=== PATIENT | female | born 1995 | race Caucasian/White ===

== ENCOUNTER → 2020-10-29 08:48 | Outpatient (REF) | payer OTHER, SELFPAY ==
--- NOTE | 2020-10-29 09:12 | ECG_ITS ---
Test Reason : METHADONE CK QT Blood Pressure : / mmHG Vent. Rate : 068 BPM Atrial Rate : 068 BPM P-R Int : 150 ms QRS Dur : 088 ms QT Int : 446 ms P-R-T Axes : 018 055 035 degrees QTc Int : 474 ms Normal sinus rhythm Normal ECG No previous ECGs available Referred By: Emily Webb Electronically Signed By:Karel Bowie
== END ==
LOC: HO.CARD 08:48
PROVIDERS: PCP Internal Medicine; Visit Provider Family Medicine
DX: Z79.899 Other long term (current) drug therapy (principal)
CPT/HCPCS: 93005

== ENCOUNTER → 2021-02-09 08:51 | Outpatient (REF) | payer OTHER, SELFPAY ==
--- NOTE | 2021-02-09 09:02 | ECG_ITS ---
Test Reason : methadone use Blood Pressure : / mmHG Vent. Rate : 066 BPM Atrial Rate : 066 BPM P-R Int : 148 ms QRS Dur : 086 ms QT Int : 434 ms P-R-T Axes : 007 054 034 degrees QTc Int : 454 ms Normal sinus rhythm RSR' or QR pattern in V1 suggests right ventricular conduction delay Otherwise normal ECG When compared with ECG of 29-OCT-2020 09:25, No significant change was found Referred By: Obie Arce Electronically Signed By:MELECIO RAMIREZ MD
== END ==
LOC: HO.CARD 08:51
PROVIDERS: PCP Internal Medicine; Visit Provider Internal Medicine
DX: F10.21 Alcohol dependence, in remission (principal); Z79.899 Other long term (current) drug therapy
CPT/HCPCS: 93005

== ENCOUNTER 2022-06-06 16:09 | Emergency (ER) | payer OTHER, SELFPAY ==
--- NOTE | ~2022-06-06 | CT_ITS ---
EXAMINATION: CT cervical spine wo IV con, CT head/brain wo IV con INDICATION INFORMATION: Fall COMPARISON: None TECHNIQUE: Separate noncontrast CT examinations of the head and cervical spine were performed. Coronal and sagittal images were created for each examination at the technologist workstation. This CT examination was performed using dose optimization techniques as appropriate, variously including the following: *Automated exposure control *Adjustment of mA and/or kV according to patient size (this includes techniques or standardized protocols for targeted exams where dose is matched to indication/reason for exam; i.e. extremities or head) *Use of iterative reconstruction technique DLP: 959 FINDINGS: Head: No acute osseous or soft tissue abnormality. The mastoid air cells and visualized portions of the paranasal sinuses are well aerated. There is no evidence of acute intracranial hemorrhage or territorial infarction. No abnormal mass effect or midline shift is seen. [place] to white matter differentiation is well preserved. No extra-axial fluid collections are identified. No hydrocephalus. No significant volume loss. There is no abnormal attenuation within the brain parenchyma. Cervical spine: There is no evidence of acute cervical spine fracture. Vertebral bodies remain normal in height. Reversal of the usual cervical lordosis, likely related to positioning. Disc space heights are maintained. No pre- or paravertebral soft tissue abnormality is identified. Visualized portions of the lung apices are unremarkable. The thyroid gland is unremarkable. CT/CT cervical spine wo IV con IMPRESSION: 1. No acute intracranial abnormality. 2. No cervical spine fracture or traumatic malalignment.
--- NOTE | ~2022-06-06 | XR_ITS ---
EXAMINATION: XR RIBS, BILATERAL CLINICAL INFORMATION: Fall off of bed COMPARISON: None TECHNIQUE: 3 views of the bilateral ribs were obtained. FINDINGS: Lungs are clear. No consolidation, pneumothorax, or pleural effusion. The cardiomediastinal silhouette and pulmonary vasculature are normal. Osseous structures are unremarkable. No acute displaced rib fractures are identified. XR/XR ribs BI min 4V w CXR1V IMPRESSION: 1. No acute pulmonary process. 2. No acute displaced rib fractures identified.
--- NOTE | ~2022-06-06 | CT_ITS ---
EXAMINATION: CT cervical spine wo IV con, CT head/brain wo IV con INDICATION INFORMATION: Fall COMPARISON: None TECHNIQUE: Separate noncontrast CT examinations of the head and cervical spine were performed. Coronal and sagittal images were created for each examination at the technologist workstation. This CT examination was performed using dose optimization techniques as appropriate, variously including the following: *Automated exposure control *Adjustment of mA and/or kV according to patient size (this includes techniques or standardized protocols for targeted exams where dose is matched to indication/reason for exam; i.e. extremities or head) *Use of iterative reconstruction technique DLP: 959 FINDINGS: Head: No acute osseous or soft tissue abnormality. The mastoid air cells and visualized portions of the paranasal sinuses are well aerated. There is no evidence of acute intracranial hemorrhage or territorial infarction. No abnormal mass effect or midline shift is seen. [place] to white matter differentiation is well preserved. No extra-axial fluid collections are identified. No hydrocephalus. No significant volume loss. There is no abnormal attenuation within the brain parenchyma. Cervical spine: There is no evidence of acute cervical spine fracture. Vertebral bodies remain normal in height. Reversal of the usual cervical lordosis, likely related to positioning. Disc space heights are maintained. No pre- or paravertebral soft tissue abnormality is identified. Visualized portions of the lung apices are unremarkable. The thyroid gland is unremarkable. CT/CT head/brain wo IV con IMPRESSION: 1. No acute intracranial abnormality. 2. No cervical spine fracture or traumatic malalignment.
--- NOTE | ~2022-06-06 | CT_ITS ---
EXAMINATION: CT CHEST WITHOUT CONTRAST CLINICAL INFORMATION: Fall with chest pain COMPARISON: None TECHNIQUE: Multidetector volumetric CT imaging of the chest was done. Axial MIP volume rendering provided. Sagittal and coronal reformatted images were obtained. This CT examination was performed using dose optimization techniques as appropriate, variously including the following: *Automated exposure control *Adjustment of mA and/or kV according to patient size (this includes techniques or standardized protocols for targeted exams where dose is matched to indication/reason for exam; i.e. extremities or head) *Use of iterative reconstruction technique DLP: 178 mGy-cm FINDINGS: PHYSICIAN PRACTICE MANAGER: No abnormality is seen LUNGS: The lungs are clear with no evidence of inflammation or worrisome nodules. A tiny 3 mm subpleural right middle lobe nodule is seen (5:292). MEDIASTINUM: Heart size normal. Soft tissue density in the anterior mediastinum represents residual thymus. CORONARY ARTERY CALCIFICATION: None visualized on this study. PLEURA: There is no pleural effusion. No pleural mass or thickening. AXILLA: No lymphadenopathy. UPPER ABDOMEN: A punctate calcified granuloma is present in the liver. Hepatic attenuation is slightly decreased suggesting hepatic steatosis. OSSEOUS STRUCTURES: Unremarkable. No fractures are seen. CT/CT chest wo IV con IMPRESSION: 1. No evidence of an acute traumatic injury in the chest. 2. Incidental note made of a tiny 3 mm right middle lobe nodule, probable hepatic steatosis and residual thymic tissue. Fleischner guidelines were followed. Guidelines state that they do not apply to patients younger than 35 years of age and the above-mentioned nodule most likely requires no follow-up.
--- NOTE | 2022-06-06 16:49 | ED.FALL ---
HPI - Fall General Chief Complaint: Fall <GRISELDA Hernandez - Last Filed: 06/06/22 16:58> Stated Complaint: Fall/Head inj <GRISELDA Hernandez - Last Filed: 06/06/22 16:58> Time Seen by Provider: 06/06/22 18:48 <GRISELDA Hernandez - Last Filed: 06/06/22 16:58> Source: patient <GRISELDA Pantoja - Last Filed: 06/06/22 21:12> Mode of arrival: ambulatory <GRISELDA Pantoja - Last Filed: 06/06/22 21:12> Limitations: other (Poor historian) <GRISELDA Pantoja - Last Filed: 06/06/22 21:12> History of Present Illness HPI Narrative: This is a 26-year-old female history of substance use disorder, currently on methadone presenting to the emergency department with a chief complaint of ?I whacked my head a few times ?. Patient tells me he last night patient fell at least 2-3 times off of her, she tells me she is not sure why she fell but she tells me she relapsed on heroin, yesterday used 10 bags of IV heroin, she tells me every time she rolled she would roll off her bed and fall, she hit her head and she thinks she lost consciousness however unclear, poor historian. Patient tells me she is having a diffuse headache, at times she has intermittent blurred vision, this happens to her periodically however when she uses drugs. Patient also reports cocaine use. Denies tobacco or alcohol. Patient tells me she also thinks she hit the right side of her ribs, however unsure, she tells me she was having pain yesterday however pain has subsided. Denies chest pain, shortness of breath, dizziness, weakness, nausea, vomiting, abdominal pain, saddle paresthesias, back pain, changes in urination or bowel habits. GCS of 15 and NIH stroke scale 0 upon arrival. <GRISELDA Pantoja - Last Filed: 06/06/22 21:12> Related Data Home Medications: Previous Rx's Medication Instructions Recorded naloxone 4 mg/actuation nasal 4 mg intranasal Q2M PRN opioid 06/06/22 spray (Narcan) overdose #2 ea <GRISELDA Hernandez - Last Filed: 06/06/22 16:58> Allergies/Adverse Reactions: Allergies Allergy/AdvReac Type Severity Reaction Status Date / Time amoxicillin Allergy Swelling Verified 06/06/22 16:49 <GRISELDA Hernandez - Last Filed: 06/06/22 16:58> Review of Systems Review of Systems: Constitutional : No Weight loss, No Fever, No Chills, No Fatigue, No Malaise ENT/Mouth : No sore throat, No Rhinorrhea Eyes: No Eye Pain, No Swelling, No Redness Cardiovascular : No Chest Pain, No SOB, No Dyspnea on Exertion, No Orthopnea, No Edema, No Palpitations Respiratory : No Cough, No Sputum, No Wheezing Gastrointestinal : No Nausea, No Vomiting, No Diarrhea, No Constipation, No abdominal Pain, No Hematochezia, No Melena Genitourinary : No Dysuria, No Urinary Frequency, No Hematuria, Musculoskeletal : No joint pain, No Myalgias, No Joint Swelling, + rib pain Skin : No Skin Lesions, No rash Neuro : No Weakness, No Numbness, No Dizziness, + Headache Psych : No Anxiety/Panic, No Depression All other systems reviewed and are negative <GRISELDA Pantoja - Last Filed: 06/06/22 21:12> Yes all other systems are reviewed and are negative <GRISELDA Pantoja - Last Filed: 06/06/22 21:12> [facility] Past Medical History Attestation statement: The following information was validated with the patient. <GRISELDA Pantoja - Last Filed: 06/06/22 21:12> Source: old records reviewed and nursing notes reviewed <GRISELDA Pantoja - Last Filed: 06/06/22 21:12> Social History Social History: Social History Advance Directives: No Advance Directives Information Provided: Yes <GRISELDA Hernandez - Last Filed: 06/06/22 16:58> Physical Exam Vital Signs: Vital Signs: Last Vital Signs Temp 97.8 F 06/06/22 16:50 Pulse 80 06/06/22 16:50 Resp 18 06/06/22 16:50 BP 110/71 06/06/22 16:50 Pulse Ox 98 06/06/22 16:50 O2 Del Method 06/06/22 16:50 BMI result Body Mass Index 20.9 <GRISELDA Hernandez - Last Filed: 06/06/22 16:58> Vital Signs: Last Vital Signs Temp 97.8 F 06/06/22 16:50 Pulse 80 06/06/22 16:50 Resp 18 06/06/22 16:50 BP 110/71 06/06/22 16:50 Pulse Ox 98 06/06/22 16:50 O2 Del Method 06/06/22 16:50 BMI result Body Mass Index 20.9 vss <GRISELDA Pantoja - Last Filed: 06/06/22 21:12> Appearance: Alert.? Oriented X3.? No acute distress.? Head: Normocephalic, atraumatic, no step-offs or deformities Eyes: Pupils equal, round and reactive to light.? Extraocular movements intact pain-free. ENT: Pharynx normal.? Neck: Normal inspection.? Neck supple.? CVS: Normal heart rate and rhythm.? Pulses normal.? Respiratory: No respiratory distress.? Breath sounds normal.? No signs of flail chest. No pain with palpation of anterior chest wall. Abdomen: Soft and nontender.? Skin: Skin warm and dry.? Normal skin color.? Normal skin turgor.? Extremities: No lower extremity edema.? No calf ttp. 5/5 strength to bilateral upper and lower extremities Neuro: Oriented X 3.? No motor deficit.? No sensory deficit. CN 2-12 intact . Normal [id number], aras-le-[id number], steady tandem gait with normal coordination, normal rapid alternating movements, negative Romberg and pronator drift. <GRISELDA Pantoja - Last Filed: 06/06/22 21:12> Course Course Course Narrative: RME--26yo F w/PMHx substance abuse currently on Methadone c/o ZHAO, neck pain, bilateral rib pain s/p falling off bed multiple times last night s/p using 10 bags of heroin. Patient reports nausea and vomiting Patient denies SI, ETOH or other illicit substances. Not currently interested in detox Head/C-spine CT and bilateral rib x-rays ordered <GRISELDA Hernandez - Last Filed: 06/06/22 16:58> Reevaluation(s) Reevaluation #1: Rib x-ray unremarkable. Patient is refusing IV line and labs. Therefore dry scan will be done although not ideal better than an x-ray to rule out for rib fractures. <GRISELDA Pantoja - Last Filed: 06/06/22 21:12> Time: 20:03 <GRISELDA Pantoja - Last Filed: 06/06/22 21:12> Reevaluation #2: CT of the head with no acute intracranial abnormality. CT of the cervical spine no acute cervical spine fracture, dislocation or traumatic subluxations. CT of chest pending. <GRISELDA Pantoja - Last Filed: 06/06/22 21:12> Time: 21:02 <GRISELDA Pantoja - Last Filed: 06/06/22 21:12> Reevaluation #3: Chest x-ray unremarkable. Educated patient on diagnosis and treatment plan, answered all question, patient verbalizes understanding. At this time patient will be discharged home, advised to return with new or worsening symptoms. Educated on worrisome signs and symptoms and when to return. At this time I feel comfortable discharge home. <GRISELDA Pantoja - Last Filed: 06/06/22 21:12> Time: 21:12 <GRISELDA Pantoja - Last Filed: 06/06/22 21:12> Medical Decision Making Medical Decision Making MDM Narrative: This is a 26-year-old female presenting with multiple falls status post using heroin now complaining of headache and yesterday was experiencing right-sided rib pain, which is now improved. Offered patient detox however refused. Physical exam benign. GCS 15 NIH stroke scale 0. Likely fall secondary to substance abuse. I do not suspect stroke, posterior stroke, intracranial hemorrhage. Unlikely meningitis, encephalitis. I do not suspect rib fractures, flail chest or pneumothorax. Plan at this time imaging. <GRISELDA Pantoja - Last Filed: 06/06/22 21:12> Differential Diagnosis Differential Diagnoses: The differential diagnosis associated with the presentation includes <GRISELDA Pantoja - Last Filed: 06/06/22 21:12> Likely fall secondary to substance abuse. I do not suspect stroke, posterior stroke, intracranial hemorrhage. Unlikely meningitis, encephalitis. I do not suspect rib fractures, flail chest or pneumothorax. <GRISELDA Pantoja - Last Filed: 06/06/22 21:12> Admission/Observation Consideration of admission/observation: Escalation of care including admission/observation considered <GRISELDA Pantoja - Last Filed: 06/06/22 21:12> Not indicated <GRISELDA Pantoja - Last Filed: 06/06/22 21:12> Lab Data MDM Lab Attestation statement: I reviewed the patient's lab results. <GRISELDA Pantoja - Last Filed: 06/06/22 21:12> Core Measures AMI core measures followed: Yes <GRISELDA Pantoja - Last Filed: 06/06/22 21:12> Measure exclusions: not indicated <GRISELDA Pantoja - Last Filed: 06/06/22 21:12> Critical Care Time Critical Care Time Critical Care Time: No <GRISELDA Pantoja - Last Filed: 06/06/22 21:12> Discharge Plan Discharge Clinical Impression: Fall, Concussion with loss of consciousness, Heroin abuse <GRISELDA Hernandez - Last Filed: 06/06/22 16:58> Patient Disposition: Home, Self-Care <GRISELDA Hernandez - Last Filed: 06/06/22 16:58> Instructions: Concussion (ED), Post Concussion Syndrome (ED) <GRISELDA Hernandez - Last Filed: 06/06/22 16:58> Additional Instructions: Take your medications as prescribed. If you were prescribed antibiotics today, it is important that you take your medication to their entirety, do not skip any doses, do not finish them early. Follow-up with your primary care provider this week. Return to the emergency department with new or worsening symptoms. Such as fevers, chills, chest pain, shortness of breath, nausea, vomiting, dizziness, headache, vision changes, lethargy In case of emergency call 911 CT/CT chest wo IV con IMPRESSION: 1.? No evidence of an acute traumatic injury in the chest. 2.? Incidental note made of a tiny 3 mm right middle lobe nodule, probable hepatic steatosis and residual thymic tissue. ? Fleischner guidelines were followed. Guidelines state that they do not apply to patients younger than 35 years of age and the above-mentioned nodule most likely requires no follow-up. CT/CT head/brain & cervical spine wo IV con IMPRESSION: ? 1.? No acute intracranial abnormality. ? 2.? No cervical spine fracture or traumatic malalignment. ? <GRISELDA Hernandez - Last Filed: 06/06/22 16:58> Prescriptions: New naloxone [Narcan] 4 mg/actuation spray,non-aerosol 4 mg intranasal Q2M PRN (Reason: opioid overdose) Qty: 2 0RF Rx Instructions: spray 1 dose into ONE nostril; alternate nostrils w each dose until help arrives <GRISELDA Hernandez - Last Filed: 06/06/22 16:58> Referrals: Physician,Unknown J [Primary Care Provider] - 2 days <GRISELDA Hernandez - Last Filed: 06/06/22 16:58> Stand Alone Forms: Work/School Release <GRISELDA Hernandez - Last Filed: 06/06/22 16:58>
[2022-06-06 16:50] VITALS: BP 110/71; PULSE 80; RESP 18; TEMP 36.6; O2SAT 98; BMI 20.9
--- NOTE | 2022-06-06 19:59 | MHC.EDTECH ---
provider ordered labs for pt. I went to draw pt. pt refused labs due to arms being sore. RN and Provider notified
[2022-06-06] MEDS: Ketorolac Tromethamine 15 MG/ML VIAL 30 MG IM (21:30)
== END 2022-06-06 22:25 | disposition home or self-care (01) ==
PROVIDERS: Emergency Provider Emergency Medicine
DX: S06.0X0A Concussion without loss of consciousness, initial encounter (principal); W06.XXXA Fall from bed, initial encounter; F19.10 Other psychoactive substance abuse, uncomplicated; F11.20 Opioid dependence, uncomplicated; Z91.81 History of falling; Y93.84 Activity, sleeping; Y92.013 Bedroom of single-family (private) house as the place of occurrence of the external cause; Y99.9 Unspecified external cause status
CPT/HCPCS: 70450; 71111; 71250; 72125; 96372; 99283; 99284; J1885

== ENCOUNTER 2022-06-08 06:29 | Emergency (ER) | payer OTHER, SELFPAY ==
[2022-06-08 07:35] VITALS: BP 96/66; PULSE 64; RESP 16; TEMP 36.6; O2SAT 99; BMI 21.6
--- NOTE | 2022-06-08 08:46 | ED.GENADULT ---
HPI - General Adult General Chief complaint: Head Injury <GRISELDA Villagomez - Last Filed: 06/08/22 10:30> Stated complaint: pain from previous fall <GRISELDA Villagomez Last Filed: 06/08/22 10:30> Time Seen by Provider: 06/08/22 08:45 <GRISELDA Villagomez Last Filed: 06/08/22 10:30> Source: patient <GRISELDA Villagomez Last Filed: 06/08/22 10:30> Mode of arrival: ambulatory <GRISELDA Villagomez Last Filed: 06/08/22 10:30> Limitations: no limitations <GRISELDA Villagomez Last Filed: 06/08/22 10:30> History of Present Illness HPI narrative: Patient is a 26 year old assigned female at with no reported medical history presenting to the emergency department today with continued headache and nausea after a fall. Patient states that 2 days ago she was evaluated here for a head injury after she had a fall. Patient states that she is continuing to have a headache and nausea and also needs her work note extended. Patient denies any dizziness, lightheadedness, abdominal pain, vomiting, fever, chills, blurry vision, double vision, loss of vision, chest pain, difficulty breathing, shortness of breath, back pain, night sweats, pain with urination, increased urinary frequency, increased urinary urgency, blood in her urine or stool, syncope or a near syncopal episode, bowel incontinence, bladder incontinence, bowel retention, bladder retention, or any other complaints at this time. <GRISELDA Villagomez - Last Filed: 06/08/22 10:30> Onset (ago): day(s) (2) <GRISELDA Villagomez - Last Filed: 06/08/22 10:30> Location: head <GRISELDA Villagomez Last Filed: 06/08/22 10:30> Severity: mild <GRISELDA Villagomez Last Filed: 06/08/22 10:30> Severity scale (1-10): 2 <GRISELDA Villagomez Last Filed: 06/08/22 10:30> Quality: dull <GRISELDA Villagomez Last Filed: 06/08/22 10:30> Pain Consistency: constant <GRISELDA Villagomez - Last Filed: 06/08/22 10:30> Relieving factors: none <GRISELDA Villagomez - Last Filed: 06/08/22 10:30> Exacerbating factors: none <GRISELDA Villagomez - Last Filed: 06/08/22 10:30> Associated symptoms: nausea/vomiting <GRISELDA Villagomez - Last Filed: 06/08/22 10:30> Treatments prior to arrival: none <GRISELDA Villagomez - Last Filed: 06/08/22 10:30> Related Data Home medications: Previous Rx's Medication Instructions Recorded naloxone 4 mg/actuation nasal 4 mg intranasal Q2M PRN opioid 06/06/22 spray (Narcan) overdose #2 ea ondansetron 4 mg disintegrating 4 mg PO Q8H 3 days #9 tabs 06/08/22 tablet <GRISELDA Villagomez - Last Filed: 06/08/22 10:30> Allergies/adverse reactions: Allergies Allergy/AdvReac Type Severity Reaction Status Date / Time amoxicillin Allergy Swelling Verified 06/06/22 16:49 <GRISELDA Villagomez - Last Filed: 06/08/22 10:30> Review of Systems Constitutional: Constitutional: Reports no additional constitutional complaints, Denies chills, Denies fever(s), Reports headache(s) and Denies night sweats <GRISELDA Villagomez - Last Filed: 06/08/22 10:30> Eyes: Eyes: Reports no additional eye complaints, Denies blurry vision, Denies change in vision, Denies diplopia, Denies eye discharge, Denies loss of vision and Denies eye pain <GRISELDA Villagomez - Last Filed: 06/08/22 10:30> ENT: Denies dizziness and Reports headache(s) <GRISELDA Villagomez - Last Filed: 06/08/22 10:30> Cardiovascular: Cardiovascular: Reports no additional cardiovascular complaints, Denies chest pain, Denies lightheadedness, Denies Loss of Consciousness and Denies dyspnea <GRISELDA Villagomez - Last Filed: 06/08/22 10:30> Respiratory: Respiratory: Reports no additional respiratory complaints and Denies dyspnea <GRISELDA Villagomez - Last Filed: 06/08/22 10:30> Gastrointestinal: Gastrointestinal: Reports no additional gastrointestinal complaints, Denies abdominal pain, Denies melena, Denies hematochezia, Denies change in bowel habits, Denies change in stool character and Reports nausea <GRISELDA Villagomez - Last Filed: 06/08/22 10:30> Genitourinary: Genitourinary: Denies hematuria, Denies urinary frequency, Denies dysuria, Denies urinary incontinence, Denies urinary hesitancy and Denies urinary urgency <GRISELDA Villagomez - Last Filed: 06/08/22 10:30> Musculoskeletal: Musculoskeletal: Reports no additional musculoskeletal complaints, Denies numbness and Denies tingling <GRISELDA Villagomez - Last Filed: 06/08/22 10:30> Neurologic: Denies dizziness, Reports headache(s), Denies loss of vision, Denies numbness and Denies tingling <GRISELDA Villagomez - Last Filed: 06/08/22 10:30> Psychiatric: Psychiatric: Reports no additional psychiatric complaints <GRISELDA Villagomez - Last Filed: 06/08/22 10:30> Endocrine: Endocrine: Reports no additional endocrine complaints <GRISELDA Villagomez - Last Filed: 06/08/22 10:30> Hematologic/Lymphatic: Hematologic/Lymphatic: Reports no additional hematologic/lymphatic complaints <GRISELDA Villagomez - Last Filed: 06/08/22 10:30> Allergic/Immunologic: Allergic/Immunologic: Reports no additional allergic/immunologic complaints <GRISELDA Villagomez - Last Filed: 06/08/22 10:30> [facility] Past Medical History Attestation statement: The following information was validated with the patient. <GRISELDA Villagomez - Last Filed: 06/08/22 10:30> Source: old records reviewed and nursing notes reviewed <GRISELDA Villagomez - Last Filed: 06/08/22 10:30> Social History Social History: Social History Advance Directives: No Advance Directives Information Provided: Yes <GRISELDA Villagomez - Last Filed: 06/08/22 10:30> Physical Exam ED Vital Signs: Vital Signs - 24 hr 06/08/22 07:35 Temperature 97.8 F Pulse Rate 64 Respiratory Rate 16 Blood Pressure 96/66 Pulse Oximetry 99 Oxygen Delivery Method Room Air BMI result Body Mass Index 21.6 <GRISELDA Villagomez - Last Filed: 06/08/22 10:30> Vital Signs - 24 hr 06/08/22 07:35 Temperature 97.8 F Pulse Rate 64 Respiratory Rate 16 Blood Pressure 96/66 Pulse Oximetry 99 Oxygen Delivery Method Room Air BMI result Body Mass Index 21.6 <Saud Clifford MD - Last Filed: 06/08/22 10:43> Const General: cooperative, no acute distress, alert and awake <GRISELDA Villagomez - Last Filed: 06/08/22 10:30> Nutritional Appearance: well nourished <GRISELDA Villagomez - Last Filed: 06/08/22 10:30> Orientation/consciousness: patient oriented x3 <GRISELDA Villagomez - Last Filed: 06/08/22 10:30> Limitations: no limitations <GRISELDA Villagomez - Last Filed: 06/08/22 10:30> HENMT Head: Yes normal to inspection and Yes atraumatic <GRISELDA Villagomez - Last Filed: 06/08/22 10:30> Ears: hearing grossly normal bilaterally and external ears normal <GRISELDA Villagomez - Last Filed: 06/08/22 10:30> General nose exam: Normal external nose present, no nasal discharge noted and no epistaxis <GRISELDA Villagomez - Last Filed: 06/08/22 10:30> Face and sinus: Yes normal facial exam, No abrasion and No laceration <GRISELDA Villagomez - Last Filed: 06/08/22 10:30> Mouth: Normal oral and palatal mucosa present, no drooling and no muffled voice <GRISELDA Villagomez - Last Filed: 06/08/22 10:30> Eyes General: appearance normal, both eyes and all related structures <GRISELDA Villagomez - Last Filed: 06/08/22 10:30> Periorbital: periorbital findings normal <GRISELDA Villagomez - Last Filed: 06/08/22 10:30> Eyelids: Yes eyelids normal <GRISELDA Villagomez - Last Filed: 06/08/22 10:30> Conjunctivae: conjunctivae normal <La York PA - Last Filed: 06/08/22 10:30> Pupils: Equal, round and reactive pupils present <La York PA - Last Filed: 06/08/22 10:30> EOM: EOMs intact bilaterally <La York LA - Last Filed: 06/08/22 10:30> Neck Neck: Yes normal visual inspection, Yes full ROM and Yes no lymphadenopathy <La York PA - Last Filed: 06/08/22 10:30> Chest Chest palpation & inspection: normal inspection of the chest <La York LA - Last Filed: 06/08/22 10:30> Resp Effort & Inspection: normal respiratory effort and able to speak in complete sentences <La York LA - Last Filed: 06/08/22 10:30> Auscultation: clear to auscultation bilaterally <La York LA - Last Filed: 06/08/22 10:30> Cardio Rate: regular rate <La York PA - Last Filed: 06/08/22 10:30> Rhythm: regular rhythm <La York PA - Last Filed: 06/08/22 10:30> GI Inspection: Yes normal to inspection <La York LA - Last Filed: 06/08/22 10:30> Palpation (GI): Soft to palpation, not firm, nontender and no guarding <La York PA - Last Filed: 06/08/22 10:30> Neuro General: patient oriented x3 and moves all extremities <La York PA - Last Filed: 06/08/22 10:30> Cranial nerves: Yes Equal, round and reactive pupils present <La York PA - Last Filed: 06/08/22 10:30> Cognition (Neuro): normal cognition <La York PA - Last Filed: 06/08/22 10:30> Motor exam (neuro): 5/5 motor strength present throughout <La York PA - Last Filed: 06/08/22 10:30> Sensory Exam: Normal double simultaneous stimulation for sensation <La York PA - Last Filed: 06/08/22 10:30> Coordination: [id number] test normal <GRISELDA Villagomez - Last Filed: 06/08/22 10:30> Extrem General: Yes normal to inspection, Yes full ROM and Yes capillary refill normal <GRISELDA Villagomez - Last Filed: 06/08/22 10:30> Psych Appearance: grossly normal <GRISELDA Villagomez - Last Filed: 06/08/22 10:30> Mental Status: mental status grossly normal <GRISELDA Villagomez - Last Filed: 06/08/22 10:30> Affect: normal affect <GRISELDA Villagomez - Last Filed: 06/08/22 10:30> Attitude: cooperative <GRISELDA Villagomez - Last Filed: 06/08/22 10:30> Thought process: Normal thought process present <GRISELDA Villagomez - Last Filed: 06/08/22 10:30> Thought content: Normal thought content present <GRISELDA Villagomez - Last Filed: 06/08/22 10:30> Insight: Good insight present (Psych) <GRISELDA Villagomez - Last Filed: 06/08/22 10:30> Medications Administered Discontinued Medications Generic Name Dose Route Start Last Admin Trade Name Freq PRN Reason Stop Dose Admin Ondansetron HCl 4 mg 06/08/22 08:58 06/08/22 09:08 Ondansetron Odt 4 Mg Tab.Rapdis TRANSLINGU 06/08/22 08:59 4 mg ONCE ONE Administration <GRISELDA Villagomez - Last Filed: 06/08/22 10:30> Medications Administered Discontinued Medications Generic Name Dose Route Start Last Admin Trade Name Freq PRN Reason Stop Dose Admin Ondansetron HCl 4 mg 06/08/22 08:58 06/08/22 09:08 Ondansetron Odt 4 Mg Tab.Rapdis TRANSLINGU 06/08/22 08:59 4 mg ONCE ONE Administration <Saud Clifford MD - Last Filed: 06/08/22 10:43> Medical Decision Making Medical Decision Making MDM Narrative: Patient is a 26 year old assigned female at with no reported medical history presenting to the emergency department today with continued headache and nausea after a trip and fall head injury. Patient's physical exam was unremarkable. I explained my physical exam findings to the patient. I answered all questions asked by the patient. Patient received Zofran which she stated helped her symptoms significantly. I stressed the importance of the patient taking her medication as prescribed. I stressed the importance of the patient following up with her primary care provider. I stressed the importance of the patient returning to the emergency department immediately if her symptoms were to worsen or if she were to develop any dizziness, shortness of breath, difficulty breathing, chest pain, blurry vision, loss of vision, nausea, vomiting, abdominal pain, fever, chills, back pain, or any other complaints. Patient verbalized agreement and understanding with this treatment plan and discharge. <GRISELDA Villagomez - Last Filed: 06/08/22 10:30> Differential Diagnosis Differential Diagnoses: The differential diagnosis associated with the presentation includes <GRISELDA Villagomez - Last Filed: 06/08/22 10:30> concussion <GRISELDA Villagomez - Last Filed: 06/08/22 10:30> Attestation Attending Attestation: I reviewed NETWORK SYSTEMS ENGINEER/PA/Resident note, assessment and plan. I agree with the documentation, assessment and plan unless otherwise stated. <Saud Clifford MD - Last Filed: 06/08/22 10:43> Discharge Plan Discharge Clinical Impression: Closed head injury <GRISELDA Villagomez - Last Filed: 06/08/22 10:30> Patient Disposition: Home, Self-Care <GRISELDA Villagomez - Last Filed: 06/08/22 10:30> Instructions: Head Injury (ED) <GRISELDA Villagomez - Last Filed: 06/08/22 10:30> Additional Instructions: Follow up with your primary care provider. Return to the emergency department immediately if your symptoms worsen or if you develop any dizziness, shortness of breath, difficulty breathing, chest pain, blurry vision, loss of vision, nausea, vomiting, abdominal pain, fever, chills, back pain, or any other complaints. <GRISELDA Villagomez - Last Filed: 06/08/22 10:30> Prescriptions: New ondansetron 4 mg tablet,disintegrating 4 mg PO Q8H 3 Days Qty: 9 0RF No Action naloxone [Narcan] 4 mg/actuation spray,non-aerosol 4 mg intranasal Q2M PRN (Reason: opioid overdose) Qty: 2 0RF Rx Instructions: spray 1 dose into ONE nostril; alternate nostrils w each dose until help arrives <GRISELDA Villagomez - Last Filed: 06/08/22 10:30> Referrals: [facility] Family Medicine [Provider Group] (Call to establish and follow up with a primary care provider. If you already have a primary care provider, please follow up with them.) [facility] Primary Care, Yu [Provider Group] (Call to establish and follow up with a primary care provider. If you already have a primary care provider, please follow up with them.) [facility] Primary Care,Toby [Provider Group] (Call to establish and follow up with a primary care provider. If you already have a primary care provider, please follow up with them.) [facility] [place] Group] (Call to establish and follow up with a neurologist if your symptoms continue. ) <GRISELDA Villagomez - Last Filed: 06/08/22 10:30> Stand Alone Forms: Work/School Release <GRISELDA Villagomez - Last Filed: 06/08/22 10:30> Interventions: ED Discharge Assessment Last Done: 06/08/22 09:09 <GRISELDA Villagomez - Last Filed: 06/08/22 10:30> Discharge Date/Time: 06/08/22 09:10 <GRISELDA Villagomez - Last Filed: 06/08/22 10:30> Print Language: Romanian <GRISELDA Villagomez - Last Filed: 06/08/22 10:30>
[2022-06-08] MEDS: Ondansetron ODT 4 MG TAB.RAPDIS TRANSLINGU (09:08)
== END 2022-06-08 09:10 | disposition home or self-care (01) ==
PROVIDERS: Emergency Provider Emergency Medicine
DX: R51.9 Headache, unspecified (principal); R11.0 Nausea; S09.90XD Unspecified injury of head, subsequent encounter; W19.XXXD Unspecified fall, subsequent encounter
CPT/HCPCS: 99282; 99283; 99284

== ENCOUNTER 2022-09-04 04:54 | Emergency (ER) | payer OTHER, SELFPAY ==
[2022-09-04 05:08] VITALS: BP 127/72; PULSE 99; RESP 18; TEMP 36.4; O2SAT 98; BMI 24.2
--- OUTSIDE RECORDS SUMMARY | 2022-09-04 05:32 | XMS_ITS | Continuity of Care Document ---
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 Name Role Phone Sarahi Shannon MD Primary Care Physician Encounter [facility] Date(s): 06/08/22 - 06/08/[address] [address]- Discharge Disposition: A-D/C Walkout Attending Physician: Not on Staff, Attending MD Admitting Physician: Not on Staff, Admitting MD Referring Physician: Not on Staff, Referring MD Allergies, Adverse Reactions, Alerts Substance Reaction Severity Status amoxicillin rash, lip swelling Active Immunizations Given and Recorded Vaccine Date Status Refusal Reason tetanus/diphtheria/pertussis, acel(Tdap) 1 04/14/13 Given Human Papillomavirus Vaccine 07/13/08 Given Human Papillomavirus Vaccine 2 09/10/07 Given Human Papillomavirus Vaccine 3 07/08/07 Given Meningococcal Conjugate Vaccine 4 07/08/07 Given Tet/Diphth/Acel, Pertussis (oldterm) 5 06/13/06 Gi denisse Poliovirus Vaccine, Inactivated 11/25/98 Given Poliovirus Vaccine, Inactivated 01/16/95 Given Poliovirus Vaccine, Inactivated 93 Given Poliovirus Vaccine, Inactivated 93 Given Diphth/Pertussis,Acel/Tetanus (oldterm) 11/25/98 G iven Diphth/Pertussis,Acel/Tetanus (oldterm) 01/16/95 G iven Diphth/Pertussis,Acel/Tetanus (oldterm) 93 G iven Diphth/Pertussis,Acel/Tetanus (oldterm) 93 G iven Diphth/Pertussis,Acel/Tetanus (oldterm) 93 G iven Measles/Mumps/Rubella Virus Vaccine 08/28/97 Given Measles/Mumps/Rubella Virus Vaccine 09/26/94 Given Haemophilus B Conj Vaccine (oldterm) 09/26/94 Give n Haemophilus B Conj Vaccine (oldterm) 93 Give n Haemophilus B Conj Vaccine (oldterm) 93 Give n Haemophilus B Conj Vaccine (oldterm) 93 Give n Hepatitis B Vaccine (old term) 03/17/94 Given Hepatitis B Vaccine (old term) 93 Given Hepatitis B Vaccine (old term) 93 Given 1Admin Note: VIS # 05/09/2011 2Admin Note: gardasil # 2 3Admin Note: state 4Admin Note: state 5Admin Note: boostrix Medications dicyclomine 20 mg oral tablet 1 tablet = 20 mg, By Mouth, 4 times a day, 30 to 60 minutes before meals, # 20 tablet, 0 Refills, Maintenance, 09/13/15 15:36:26, Tablet Start Date: 09/13/15 Stop Date: 09/18/15 Status: Ordered ibuprofen 600 mg oral tablet 600 mg, 1, tablet, By Mouth, Every 6 hours, # 40 tablet, Refills 0, Tot. Refills 0, Maintenance, 10/24/15 12:59:41, Print Requisition Start Date: 10/24/15 Status: Ordered omeprazole 40 mg oral enteric coated capsule 1 capsule = 40 mg, By Mouth, Daily, # 30 capsule, 0 Refills, Maintenance, 09/13/15 15:37:20, EC Capsule Start Date: 09/13/15 Stop Date: 10/13/15 Status: Ordered Problem List Condition Confirmation Course Effective Dates Status Health St atus Informant , normal, incidental Confirmed Active Social History Social History Type Response Smoking Status Current every day jaye rosabrigette entered on: 05/14/15 Sex Patient Care team information Care Team Personnel Name: Moreno DAVILA, Brent Chan Position: [facility] General Pediatrics MD Member Role: Lifetime Consulting Physician Address: Address: [address] [place] [address] [place] [address]- Name: Raquel Ochoa Position: [facility] Outreach Member Role: Lifetime Consulting Physician Name: Mirtha DAVILA , Sarahi Lucero Position: [facility] Physician -Physician Practices Member Role: PCP Address: Address: [address] [place] [id number]- Name: Sam SHEFFIELD, Jenn Position: [facility] OB RN Member Role: Primary Care Nurse Name: Gayla Tolentino Position: [facility] Outreach Member Role: Lifetime Consulting Physician Care Team Related Persons Name: DWIGHT MCKEONELE Address: home [address] [place] [id number] Name: MARICARMEN FLORIAN Address: [place] [address]
--- NOTE | 2022-09-04 05:34 | ED.DENTAL ---
HPI - Dental/Oral General Chief complaint: Dental/Oral Stated complaint: mouth infection Time Seen by Provider: 09/04/22 05:29 Source: patient Mode of arrival: ambulatory Limitations: no limitations History of Present Illness HPI Narrative: Patient comes in the emergency room complaining of bilateral maxillary pain in the gums. Patient has put on patient, states that she has been dealing with this issues with dental pains, infections for about a year. However, over the last 3 days, the pain got worse. Related Data Previous Rx's Medication Instructions Recorded naloxone 4 mg/actuation nasal 4 mg intranasal Q2M PRN opioid 06/06/22 spray (Narcan) overdose #2 ea ondansetron 4 mg disintegrating 4 mg PO Q8H 3 days #9 tabs 06/08/22 tablet clindamycin HCl 150 mg capsule 150 mg PO TID 7 days #21 caps 09/04/22 ketorolac 10 mg tablet 10 mg PO BID PRN pain #6 tabs 09/04/22 Allergies Allergy/AdvReac Type Severity Reaction Status Date / Time amoxicillin Allergy Swelling Verified 06/06/22 16:49 Review of Systems Review of Systems: Constitutional : No Weight loss, No Fever, No Chills, No Night Sweats, No Fatigue, No Malaise ENT/Mouth : Complaining of dental cleaning maxillary side, right and left, No Hearing loss, No Ear Pain, No Nasal Congestion, No Sinus Pain, No Hoarseness, No sore throat, No Rhinorrhea, No Swallowing Difficulty Eyes: No Eye Pain, No Swelling, No Redness, No Foreign Body, No Discharge, No Vision Changes Cardiovascular : No Chest Pain, No SOB, No Dyspnea on Exertion, No Orthopnea, No Edema, No Palpitations Respiratory : No Cough, No Sputum, No Wheezing, No Smoke Exposure, No Dyspnea Gastrointestinal : No Nausea, No Vomiting, No Diarrhea, No Constipation, No abdominal Pain, No Hematochezia, No Melena Genitourinary : no irregular bleeding, No Dysuria, No Urinary Frequency, No Hematuria, No Urinary Incontinence, No Urgency, No Flank Pain, No Urinary Flow Changes, No Hesitancy Musculoskeletal : No joint pain, No Myalgias, No Joint Swelling Skin : No Skin Lesions, No rash Neuro : No Weakness, No Numbness, No Paresthesias, No Loss of Consciousness, No Dizziness, No Headache Psych : No Anxiety/Panic, No Depression, No SI/HI/AH/VH, No Social Issues, Heme/Lymph: No Bruising, No Bleeding,No Lymphadenopathy Endocrine : No Polyuria, No Polydipsia, No Temperature Intolerance [facility] Social History Social History Advance Directives: No Advance Directives Information Provided: No Physical Exam Vital Signs: Vital Signs: Last Vital Signs Temp 97.6 F 09/04/22 05:08 Pulse 99 09/04/22 05:08 Resp 18 09/04/22 05:08 BP 127/72 09/04/22 05:08 Pulse Ox 98 09/04/22 05:08 O2 Del Method Room Air 09/04/22 05:08 BMI result Body Mass Index 24.2 Const: Other: Appearance: Alert. Oriented X3. No acute distress. Eyes: Pupils equal, round and reactive to light. ENT: Pharynx normal. Poor dentition, no obvious abscess is visualized. Patient missing several teeth, gums erythematous Neck: Normal inspection. Neck supple. No lymph nodes noted. No crepitus CVS: Normal heart rate and rhythm. Pulses normal. Normal S1 and S2 Respiratory: No respiratory distress. Breath sounds normal. No Wheezing. No rales Abdomen: Soft and nontender. No rigidity. No distention. Skin: Skin warm and dry. Normal skin color. Normal skin turgor. Extremities: No lower extremity edema. No Lacerations. No Rash Neuro: Oriented X 3. No motor deficit. No sensory deficit. Moving all extremities. No slurred speech. CN 2 through 12 grossly intact Psych: calm, cooperative, normal affect Medical Decision Making Medical Decision Making MDM Narrative: -patient was given 1 dose of IM Toradol, p.o. clindamycin, patient has anaphylactic reaction to penicillins. Discharge Plan Discharge Clinical Impression: Toothache Patient Disposition: Home, Self-Care Instructions: Toothache (ED) Additional Instructions: Please follow-up with your primary care physician tomorrow. If you have any worsening or new symptoms, please return to the emergency room or call 911 Prescriptions: New clindamycin HCl 150 mg capsule 150 mg PO TID 7 Days Qty: 21 0RF ketorolac 10 mg tablet 10 mg PO BID PRN (Reason: pain) Qty: 6 0RF Rx Instructions: Do not use NSAIDs with his medication, only Tylenol if needed No Action naloxone [Narcan] 4 mg/actuation spray,non-aerosol 4 mg intranasal Q2M PRN (Reason: opioid overdose) Qty: 2 0RF Rx Instructions: spray 1 dose into ONE nostril; alternate nostrils w each dose until help arrives ondansetron 4 mg tablet,disintegrating 4 mg PO Q8H 3 Days Qty: 9 0RF
[2022-09-04] MEDS: Ketorolac Tromethamine 60 MG/2 ML VIAL IM (05:52)
== END 2022-09-04 06:04 | disposition home or self-care (01) ==
PROVIDERS: Emergency Provider Emergency Medicine
DX: K08.89 Other specified disorders of teeth and supporting structures (principal)
CPT/HCPCS: 96372; 99283; 99284; J1885

== ENCOUNTER 2022-10-20 01:49 | Emergency (ER) | payer OTHER, SELFPAY ==
[2022-10-20 01:54] VITALS: BP 99/55; PULSE 58; RESP 17; TEMP 36.2; O2SAT 99; BMI 23.3
[2022-10-20 02:09] VITALS: BP 94/54; RESP 12; TEMP 36.5; O2SAT 99
--- NOTE | 2022-10-20 02:12 | PC.NURSE ---
Pt ca&ox3, no signs of distress. Pt reports 5/10 sharp headache with onset of 2 weeks ago. Pt also reports intermittent fevers for the past 2 days has taken tylenol at home with some relief. Friend at bedside. tm.
--- NOTE | 2022-10-20 02:33 | ED.HA ---
HPI - Headache General Chief Complaint: Headache Stated Complaint: Headache Time Seen by Provider: 10/20/22 02:33 Source: patient Mode of arrival: ambulatory Limitations: no limitations History of Present Illness HPI Narrative: Patient been having frontal headache for 2 weeks noticed low-grade fever for last few days has chronic cough smoker uses IV cocaine sometimes no nausea no vomiting feel congested no back pain no chills no urinary symptom Related Data Previous Rx's Medication Instructions Recorded naloxone 4 mg/actuation nasal 4 mg intranasal Q2M PRN opioid 06/06/22 spray (Narcan) overdose #2 ea ondansetron 4 mg disintegrating 4 mg PO Q8H 3 days #9 tabs 06/08/22 tablet clindamycin HCl 150 mg capsule 150 mg PO TID 7 days #21 caps 09/04/22 ketorolac 10 mg tablet 10 mg PO BID PRN pain #6 tabs 09/04/22 [id number] 1 cap PO Q6H PRN headache #20 caps 10/20/22 50 mg-300 mg-40 mg capsule (Fioricet) cefuroxime axetil 500 mg tablet 500 mg PO BID #20 tabs 10/20/22 doxycycline hyclate 100 mg tablet 100 mg PO BID #20 tabs 10/20/22 Allergies Allergy/AdvReac Type Severity Reaction Status Date / Time amoxicillin Allergy Swelling Verified 06/06/22 16:49 Review of Systems Review of Systems: Yes all other systems are reviewed and are negative [facility] Social History Social History Smoked in Last 30 Days: Yes Use of substances other than those prescribed or required for medical reasons: No Advance Directives: No Advance Directives Information Provided: Yes Physical Exam Vital Signs: Vital Signs: Last Vital Signs Temp 97.7 F 10/20/22 02:09 Pulse 58 10/20/22 01:54 Resp 12 10/20/22 02:09 BP 94/54 L 10/20/22 02:09 Pulse Ox 99 10/20/22 02:09 O2 Del Method Room Air 10/20/22 02:09 BMI result Body Mass Index 23.3 Appearance: Alert. Oriented X3. No acute distress. Eyes: PERRLA, No Nystagmus ENT: Pharynx normal. Oral Mucosa moist Neck: Normal inspection. Neck supple. CVS: Normal heart rate and rhythm. Pulses normal. Respiratory: No respiratory distress. Equal air entry bilateral, no rales, bilateral prolonged expiration Abdomen: Soft and nontender. Bowel sounds are present, no mass palpable, no CVA tenderness Skin: Skin warm and dry. Normal skin color. Normal skin turgor. Extremities: No lower extremity edema. No calf tenderness Neuro: Oriented X 3. No motor deficit. No sensory deficit.No cerebellar signs , cranial nerves II-XII intact Medications Administered Discontinued Medications Generic Name Dose Route Start Last Admin Trade Name Freq PRN Reason Stop Dose Admin Acetaminophen/Butalbital/Caffeine 1 tab 10/20/22 03:03 10/20/22 03:14 Butalb/Acetamin/Caff 50/325/40 Tablet PO 10/20/22 03:04 1 tab ONCE ONE Administration Cefuroxime Axetil 500 mg 10/20/22 03:05 10/20/22 03:15 Cefuroxime Axetil 500 Mg Tablet PO 10/20/22 03:06 500 mg ONCE ONE Administration Doxycycline Monohydrate 100 mg 10/20/22 03:05 10/20/22 03:14 Doxycycline Monohydrate 100 Mg Capsule PO 10/20/22 03:06 100 mg ONCE ONE Administration Medical Decision Making Medical Decision Making [facility] Narrative: Patient refused any labs clinically nontoxic likely bronchitis with rhinosinusitis discharge patient home on doxy and Ceftin advised to report to the ER if high fever Lab Data MDM Lab Attestation statement: I reviewed the patient's lab results. Labs: Lab Results 10/20/22 Range/Units 03:29 COVID-19 ([facility]) Negative (Negative) COVID-19 Clin Com See Note Discharge Plan Discharge Clinical Impression: Headache, migraine, Bronchitis Patient Disposition: Home, Self-Care Instructions: Migraine Headache (ED), Chronic Bronchitis (ED) Additional Instructions: Stop smoking and using drugs Take Fioricet and antibiotic as prescribed Report to the ER if high-grade fever for further evaluation Prescriptions: New cefuroxime axetil 500 mg tablet 500 mg PO BID Qty: 20 0RF doxycycline hyclate 100 mg tablet 100 mg PO BID Qty: 20 0RF [id number]-[id number] [Fioricet] 50-300-40 mg capsule 1 cap PO Q6H PRN (Reason: headache) Qty: 20 0RF No Action naloxone [Narcan] 4 mg/actuation spray,non-aerosol 4 mg intranasal Q2M PRN (Reason: opioid overdose) Qty: 2 0RF Rx Instructions: spray 1 dose into ONE nostril; alternate nostrils w each dose until help arrives ondansetron 4 mg tablet,disintegrating 4 mg PO Q8H 3 Days Qty: 9 0RF clindamycin HCl 150 mg capsule 150 mg PO TID 7 Days Qty: 21 0RF ketorolac 10 mg tablet 10 mg PO BID PRN (Reason: pain) Qty: 6 0RF Rx Instructions: Do not use NSAIDs with his medication, only Tylenol if needed
--- NOTE | 2022-10-20 03:17 | PC.NURSE ---
Pt medicated per jun. yovani.
[2022-10-20 03:52] LABS: COVID-19 Test Negative (Negative); IDNOW Serial# 6674DD1D
== END 2022-10-20 04:15 | disposition home or self-care (01) ==
PROVIDERS: Emergency Provider Internal Medicine; PCP Internal Medicine
DX: J40 Bronchitis, not specified as acute or chronic (principal); G43.909 Migraine, unspecified, not intractable, without status migrainosus; Z20.822 Contact with and (suspected) exposure to COVID-19; Z20.828 Contact with and (suspected) exposure to other viral communicable diseases
CPT/HCPCS: 71045; 87635; 99283; 99284

== ENCOUNTER 2023-01-09 09:19 | Emergency (ER) | payer OTHER, SELFPAY ==
--- NOTE | ~2023-01-09 | XR_ITS ---
EXAMINATION: XR CHEST CLINICAL INFORMATION: Productive cough for months Headaches COMPARISON: Chest 10/20/2022 TECHNIQUE: Frontal view of the chest was obtained. 10:23 AM FINDINGS: The lungs are well expanded and clear. No focal mass, interstitial pulmonary edema or pneumothorax. There is question of slight blunting of the left costophrenic angle consistent with a small pleural effusion. No significant abnormality is noted involving the heart, mediastinum, bony thorax or soft tissues. XR/XR chest 1V IMPRESSION: Question of a small left pleural effusion.
[2023-01-09 09:25] VITALS: BP 137/81; PULSE 100; RESP 18; TEMP 36.7; O2SAT 98; BMI 22.5
--- NOTE | 2023-01-09 10:00 | ED_ITS ---
HPI - General Adult General Chief complaint: Eye Problems Stated complaint: head pain dizzness chest tightness Time Seen by Provider: 01/09/23 09:46 Source: patient Mode of arrival: ambulatory Limitations: no limitations History of Present Illness HPI narrative: Patient is a 27-year-old female presenting to the emergency department with complaint of intermittent episodes of pain behind her eyes with eye movement, episodes of dizziness, and productive cough. Patient reports that pain/headaches with eye movements and dizziness has been ongoing for the past year. States that when she moves her eyes laterally or vertically she at times develops severe intense pain behind her eye lasting several seconds to a minute. Dizziness is intermittent and worse with head movements, sometimes has 2-3 episodes per day, not associated with eye pain/headaches. Denies syncope. Denies any nausea or vomiting. Patient was seen in this emergency department in May of 2022 for a head injury and states that her symptoms began prior to that injury. She states that her productive cough has been ongoing for the past several months. She states that she smokes 4-5 cigarettes daily. Denies any fevers. Denies chest pain. Denies blurred vision, double vision or other visual changes. MD complaint: eye pain, dizziness, cough Onset (ago): month(s) Location: head Radiation: non-radiation Severity: severe Quality: stabbing Pain Consistency: intermittent Relieving factors: none Exacerbating factors: other (eye movement) Associated symptoms: cough Treatments prior to arrival: none Related Data Previous Rx's Medication Instructions Recorded naloxone 4 mg/actuation nasal 4 mg intranasal Q2M PRN opioid 06/06/22 spray (Narcan) overdose #2 ea ondansetron 4 mg disintegrating 4 mg PO Q8H 3 days #9 tabs 06/08/22 tablet clindamycin HCl 150 mg capsule 150 mg PO TID 7 days #21 caps 09/04/22 ketorolac 10 mg tablet 10 mg PO BID PRN pain #6 tabs 09/04/22 [id number]-bjzipxecpefzu-fykrhcbq 1 cap PO Q6H PRN headache #20 caps 10/20/22 50 mg-300 mg-40 mg capsule (Fioricet) cefuroxime axetil 500 mg tablet 500 mg PO BID #20 tabs 10/20/22 doxycycline hyclate 100 mg tablet 100 mg PO BID #20 tabs 10/20/22 doxycycline hyclate 100 mg tablet 100 mg PO BID #10 tabs 01/09/23 prednisone 20 mg tablet 40 mg (2 x 20 mg) PO DAILY #10 tabs 01/09/23 Allergies Allergy/AdvReac Type Severity Reaction Status Date / Time amoxicillin Allergy Swelling Verified 06/06/22 16:49 Review of Systems Review of Systems: As per HPI. Yes all other systems are reviewed and are negative Constitutional: Constitutional: Reports as per HPI [facility] Social History Social History Advance Directives: No Advance Directives Information Provided: Yes Physical Exam ED Vital Signs: Vital Signs - 24 hr 01/09/23 09:25 Temperature 98.1 F Pulse Rate 100 Respiratory Rate 18 Blood Pressure 137/81 Pulse Oximetry 98 Oxygen Delivery Method Room Air BMI result Body Mass Index 22.5 Vital signs have been reviewed and appear to be correct. Blood pressure normal. Heart rate normal. Respiratory rate normal. Temperature normal. Oxygen saturation normal. Const General: cooperative, healthy appearing and no acute distress Orientation/consciousness: oriented to person, oriented to place, oriented to time and patient oriented x3 Limitations: no limitations [facility] Head: Yes normocephalic and Yes atraumatic Ears: external ears normal General nose exam: Normal external nose present Face and sinus: Yes face symmetric Mouth: oropharynx normal and moist mucous membranes Throat: Yes uvula midline Eyes General: appearance normal, both eyes and all related structures Visual Asif: normal visual asif by confrontation Alignment and Position: alignment normal Periorbital: periorbital findings normal Eyelids: Yes eyelids normal Conjunctivae: conjunctivae normal Sclerae: sclerae normal Corneas: corneas normal Pupils: Equal, round and reactive pupils present EOM: EOMs intact bilaterally and No Nystagmus present Direct Ophthalmoscopy: normal light reflex, no papilledema, fundi normal bilaterally and anterior chamber normal Neck Neck: Yes normal visual inspection, Yes no meningeal signs and Yes supple Resp Effort & Inspection: normal respiratory effort and able to speak in complete sentences Auscultation: clear to auscultation bilaterally Cardio Rate: regular rate Rhythm: regular rhythm Heart sounds: S1 normal heart sound present and S2 normal heart sound present GI Palpation (GI): Soft to palpation and nontender Auscultation: normoactive bowel sounds General: Yes no CVA tenderness Back/Spine/Pelvis Back: no CVA tenderness Skin General skin exam: elasticity normal and turgor normal Neuro General: oriented to person, oriented to place, oriented to time, patient oriented x3, gait normal, tone normal, moves all extremities, Normal light touch and pain sensation, no meningeal signs, no focal motor deficits, CN's II-XI intact bilaterally and deep tendon reflexes 2+ bilaterally Cranial nerves: Yes Equal, round and reactive pupils present and No Nystagmus present Cognition (Neuro): normal cognition Motor exam (neuro): 5/5 motor strength present throughout Sensory Exam: Normal double simultaneous stimulation for sensation Extrem General: Yes full ROM, Yes no pedal edema and Yes no calf tenderness Psych Mental Status: mental status grossly normal Affect: normal affect Thought process: Normal thought process present Medical Decision Making Medical Decision Making [facility] [place] Narrative: Patient is a 27-year-old female presenting to the emergency department with complaint of intermittent episodes of pain behind her eyes with eye movement, episodes of dizziness, and productive cough. On exam patient is awake, A+Ox3, VS WNL, afebrile, normal neurological exam without focal deficits, physical exam findings as above. Given reported symptoms and physical exam findings, initial differential includes Covid, influenza, pneumonia, peripheral vertigo, migraines. Given that patient is reporting her symptoms began prior to May of 2022, and patient had normal CT head on 06/06/22, do not feel repeat imaging is indicated at this time. Swabs for flu and Covid negative. X-ray notable for questionable small pleural effusion. My interpretation is in agreement with the radiologist's interpretation. Will cover with doxycycline, prescribe short course of prednisone. Will refer to neurology for further evaluation and management of symptoms. Return precautions discussed at bedside. Patient verbalized understanding of and agreement with plan. Differential Diagnosis Differential Diagnoses: The differential diagnosis associated with the presentation includes As per [facility] [place]. Lab Data [facility] [place] Lab Attestation statement: I reviewed the patient's lab results. As per [facility] [place] Labs: Lab Results 01/09/23 Range/Units 10:18 COVID-19 ([facility]) Negative (Negative) COVID-19 Clin Com See Note Influenza Type A ([facility]) Negative (Negative) Influenza Type B ([facility]) Negative (Negative) Influenza A & B Note See Note Independent Interpretation I performed an independent interpretation of an: Plain X-Ray Interpretation: ? small effusion left Radiology Impression Discussion of test interpretation with radiology: I have reviewed the radiologist's reading. Radiologist Impression: XR/XR chest 1V IMPRESSION: Question of a small left pleural effusion. External Record Review External record reviewed: Inpatient record, Office record and Outpatient record Prescription Management I considered prescription management with: Antibiotic and Other Discharge Plan Discharge Clinical Impression: Bronchitis Patient Disposition: Home, Self-Care Instructions: Acute Bronchitis (ED) Additional Instructions: You are being treated for bronchitis with antibiotics and a short course of steroids. Please complete the full course of all medications prescribed. You are being referred to neurology for your dizziness and eye symptoms. Please call their office to set up and appointment. Return to the emergency department if you develop worsening pain, blurred vision, double vision, or other vision changes, fever 100.4F or greater, or any other concerning symptoms. Prescriptions: New doxycycline hyclate 100 mg tablet 100 mg PO BID Qty: 10 0RF prednisone 20 mg tablet 40 mg PO DAILY Qty: 10 0RF No Action naloxone [Narcan] 4 mg/actuation spray,non-aerosol 4 mg intranasal Q2M PRN (Reason: opioid overdose) Qty: 2 0RF Rx Instructions: spray 1 dose into ONE nostril; alternate nostrils w each dose until help arrives ondansetron 4 mg tablet,disintegrating 4 mg PO Q8H 3 Days Qty: 9 0RF clindamycin HCl 150 mg capsule 150 mg PO TID 7 Days Qty: 21 0RF ketorolac 10 mg tablet 10 mg PO BID PRN (Reason: pain) Qty: 6 0RF Rx Instructions: Do not use NSAIDs with his medication, only Tylenol if needed cefuroxime axetil 500 mg tablet 500 mg PO BID Qty: 20 0RF doxycycline hyclate 100 mg tablet 100 mg PO BID Qty: 20 0RF [id number]-rzymqyestbdll-[id number] [Fioricet] 50-300-40 mg capsule 1 cap PO Q6H PRN (Reason: headache) Qty: 20 0RF Referrals: Levi Abbott MD [Physician] - Stand Alone Forms: Work/School Release
[2023-01-09 10:54] LABS: COVID-19 Test Negative (Negative); IDNOW Serial# 08D9AD1C; IDNOW Serial# 9DB6401D; Influenza A Negative (Negative); Influenza B2 Negative (Negative)
== END 2023-01-09 11:26 | disposition home or self-care (01) ==
PROVIDERS: Registered Nurse Emergency; Emergency Provider Emergency Medicine
DX: J40 Bronchitis, not specified as acute or chronic (principal); R51.9 Headache, unspecified; R05.9 Cough, unspecified; Z79.899 Other long term (current) drug therapy; Z20.822 Contact with and (suspected) exposure to COVID-19; Z20.828 Contact with and (suspected) exposure to other viral communicable diseases
CPT/HCPCS: 71045; 87502; 87635; 99282; 99284

== ENCOUNTER 2023-02-05 07:17 | Emergency (ER) | payer OTHER, SELFPAY ==
[2023-02-05 07:23] VITALS: BP 113/80; PULSE 68; RESP 18; TEMP 36.6; O2SAT 99; BMI 21.8
[2023-02-05] MEDS: Ondansetron ODT 4 MG TAB.RAPDIS TRANSLINGU (07:29)
== END 2023-02-05 13:30 | disposition left against medical advice (07) ==
LOC: HO.ED 13:32
PROVIDERS: Emergency Provider Emergency Medicine
DX: R53.1 Weakness (principal); R11.2 Nausea with vomiting, unspecified
CPT/HCPCS: 99281; 99283